=== PATIENT | female | born 1955 | race Caucasian/White ===

== ENCOUNTER 2018-08-09 17:31 | Inpatient (IN) | payer OTHER ==
[2018-08-09 18:28] LABS: #Eosinphils 0.1 thou/uL (0.0-0.7); #Lymphocytes 2.4 thou/uL (1.20-3.40); #Monocytes 0.4 thou/uL (0.11-0.59); %Basophils 0.8 % (0.0-1.0); %Eosinophils 2.9 % (0.0-10.0); %Lymphocytes 48.4 % (21.0-51.0); %Monocytes 8.5 % (0.0-10.0); %Neutrophils 39.4 % (42.0-75.0); Mean Corpuscular HGB CONC 33.1 g/dL (32.0-36.0); Mean Corpuscular Hemoglobin 29.9 pg (27.0-31.0); Mean Corpuscular Volume 90.2 fL (78.0-98.0); Platelet Count 208 thou/uL (130-400); RBC Distribution Width 12.1 % (11.5-14.5); Red Blood Cell (RBC) Count 4.68 mill/uL (4.20-5.40)
[2018-08-09 18:43] LABS: ALT (SGPT) 17 U/L (8-55); AST (SGOT) 16 U/L (5-34); Albumin 3.9 g/dL (3.4-4.8); Alkaline Phosphatase 29 U/L (40-150); Anion Gap 12 mmol/L (10-20); BUN (Urea Nitrogen) 10 mg/dL (9.8-20.1); Bilirubin, Total 0.8 mg/dL (0.2-1.2); Calc. Creatinine Clearance 0 mL/min (70-130); Calcium 9.2 mg/dL (7.8-10.44); Carbon Dioxide 27 mmol/L (23-31); Chloride 105 mmol/L (98-107); Estimated GFR-MDRD 74; Globulin 3.4 g/dL (2.4-3.5); Glucose 103 mg/dL (80-115); Potassium 3.8 mmol/L (3.5-5.1); Protein, Total 7.3 g/dL (6.0-8.3); Sodium 140 mmol/L (136-145)
--- NOTE | 2018-08-09 19:50 | ULT ---
SOFT TISSUE ULTRASOUND: Technique: Directed soft tissue ultrasound medial right thigh region performed. Indication: Palpable area of tenderness. FINDINGS: In the subcutaneous tissues there is a hypoechoic area measuring approximately 2.3 x 1.5 cm. This cou ld represent a small fluid or abscess collection. The tissues anterior to this collection are very ec hogenic suggesting inflammation and induration. IMPRESSION: Ill-defined hypoechoic area which may represent fluid or abscess collection measuring approximately 1 .5 x 2.5 cm. POS: [facility]
[2018-08-09] MEDS ORDERED: Lidocaine 1% PF 5 ML VIAL ONE (21:20)
[2018-08-09] MEDS ORDERED: CEFAZOLIN 1 GM VIAL ONE ×2 (22:25→22:35)
[2018-08-09] MEDS ORDERED: Sodium Chloride 0.9% 1,000 ML IV SCH (23:08)
[2018-08-09] MEDS ORDERED: Ondansetron ODT 4 MG TAB SL PRN (23:08)
[2018-08-09] MEDS ORDERED: Acetaminophen 325 MG TAB PO PRN (23:08)
[2018-08-09] MEDS ORDERED: Ondansetron PF 4 MG/2 ML Vial IVP PRN (23:08)
--- NOTE | 2018-08-10 00:33 | PDOC.FPRHP ---
- History of Present Illness Chief Complaint: right leg mass History of Present Illness: This is a 63yo F who presented to [facility] earlier today for right leg mass and was sent to the ED for cellulitis with possible I&D of abscess and IV abx. The patient first noticed pain followed by redness and swelling in her right inner thigh about 2-2.5 weeks prior. The patient states she felt a lump about 1.5 weeks ago. Denies injury or insect bite to the area. Patient denies fever, chills, NVD, or decreased PO intake. Patient states the redness and swelling has gotten progressively worse today. In the ED, unsuccessful attempt to drain abscess. Minimal pus expressed and culture sent. ED Course: ancef 2gm - Allergies/Adverse Reactions Allergies Allergy/AdvReac Type Severity Reaction Status Date / Time morphine AdvReac Mild BRADYCARDIA Verified 08/10/18 00:37 - Home Medications Medication Instructions Recorded Confirmed Type Aspirin [Children's Aspirin] 81 mg PO HS 08/10/18 08/10/18 History Citalopram [CeleXA] 1 tab PO DAILY 08/10/18 08/10/18 History Metoprolol Tartrate 1 tab PO DAILY 08/10/18 08/10/18 History Naproxen [Naprosyn] 1 tab PO PRN PRN 08/10/18 08/10/18 History - History PMHx: previous cellulitis of RLE, HTN, borderline DM, anxiety PSHx: appendectomy, hysterectomy, oophorectomy, tubal ligation FHx: non contributory Social: denies alcohol drug or tobacco use - Review of Systems General: denies: fever/chills, weight/appetite/sleep changes, night sweats, fatigue Eyes: denies: vision changes ENT: denies: nasal congestion Respiratory: denies: cough, congestion, shortness of breath Cardiovascular: denies: chest pain, palpitation, edema Gastrointestinal: denies: nausea, vomiting, diarrhea, constipation, abdominal pain Skin: reports: lesions Musculoskeletal: denies: pain, tenderness, stiffness, swelling Neurological: denies: numbness, weakness - Vital signs BP: 146/77 HR: 71 RR: 16 Tmax: 98.9F Pox: 99% on RA Wt: 116.89kg - Physical Exam Constitutional: NAD, awake, alert and oriented, well developed HEENT: normocephalic and atraumatic, PERRLA, EOMI, grossly normal vision, grossly normal hearing, MMM Neck: supple, FROM, trachea midline Chest: no-tender to palpation, no lesions Heart: RRR, normal S1/S2, no murmurs/rubs/gallops, pulses present Lungs: CTAB, no respiratory distress, no wheezing Abdomen: soft, non-tender, bowel sounds present Musculoskeletal: normal structure, normal tone Neurological: no focal deficit Skin: no rash/lesions ([id number] area of induration, erythema surrounding the area and spreading towards lower leg; warmth to the area), capillary refill <2 seconds Heme/Lymphatic: no unusual bruising or bleeding, no petechia Psychiatric: normal mood and affect, good judgment and insight, intact recent and remote memory FMR H&P: Results - Labs Result Diagrams: 08/10/18 02:10 08/10/18 02:10 Lab results: WBC 5.0 thou/uL (4.8-10.8) 08/09/18 18:10 Hgb 14.0 g/dL (12.0-16.0) 08/09/18 18:10 Hct 42.2 % (36.0-47.0) 08/09/18 18:10 MCV 90.2 fL (78.0-98.0) 08/09/18 18:10 Plt Count 208 thou/uL (130-400) 08/09/18 18:10 Neutrophils % 39.4 % (42.0-75.0) L 08/09/18 18:10 Sodium 140 mmol/L (136-145) 08/09/18 18:10 Potassium 3.8 mmol/L (3.5-5.1) 08/09/18 18:10 Chloride 105 mmol/L (98-107) 08/09/18 18:10 Carbon Dioxide 27 mmol/L (23-31) 08/09/18 18:10 BUN 10 mg/dL (9.8-20.1) 08/09/18 18:10 Creatinine 0.78 mg/dL (0.6-1.1) 08/09/18 18:10 Glucose 103 mg/dL (80-115) 08/09/18 18:10 Lactic Acid 1.9 mmol/L (0.5-2.2) 08/09/18 18:06 Calcium 9.2 mg/dL (7.8-10.44) 08/09/18 18:10 Total Bilirubin 0.8 mg/dL (0.2-1.2) 08/09/18 18:10 AST 16 U/L (5-34) 08/09/18 18:10 ALT 17 U/L (8-55) 08/09/18 18:10 Alkaline Phosphatase 29 U/L (40-150) L 08/09/18 18:10 Serum Total Protein 7.3 g/dL (6.0-8.3) 08/09/18 18:10 Albumin 3.9 g/dL (3.4-4.8) 08/09/18 18:10 - Radiology Interpretation Other Status: report reviewed by me (US: hypoechoic area which may represent fluid or abscess collection measuring 1.5X2.5cm) FMR H&P: A/P - Problem List (1) Abscess Current Visit: Yes Status: Acute Code(s): L02.91 - CUTANEOUS ABSCESS, UNSPECIFIED (2) Hypertension Current Visit: Yes Status: Acute Code(s): I10 - ESSENTIAL (PRIMARY) HYPERTENSION (3) Anxiety Current Visit: Yes Status: Acute Code(s): F41.9 - ANXIETY DISORDER, UNSPECIFIED (4) Pre-diabetes Current Visit: Yes Status: Acute Code(s): R73.03 - PREDIABETES - Plan Right Extremity Cellulitis w/ abscess - Will admit to medical - Will consult general surgery for drainage of abscess in AM - Cx pending - pro nitin ordered - Will continue abx therapy with vanc for MRSA coverage - AM CBC, BMP Anxiety - aware, restart home meds HTN - aware, restart home meds - monitor VS Pre-diabetes - controlled with diet/exercise - Will monitor sugars - will obtain HbA1C DISPO: admit to medical CODE: FULL VTE: SCDs, home asa GI: protonix FMR H&P: Upper Level - Pertinent history Taty Toscano is a 63 year old female who presents to the ED due to increased redness with an indurated mass on her right lower extremity. She was seen in clinic earlier today and was directed to the ED for further evaluation. She has been treated for cellulitis in the past. - Pertinent findings General: alert and oriented, in no apparent distress. Extremities: right lower extremity with approximately 25 cm in length with approximately 2x5 cm area of induration in the center. - Plan Date/Time: 08/10/18 0029 I, Alexandrea Dotson, have evaluated this patient and agree with findings/plan as outlined by recruiting intern resident. Pertinent changes/additions are listed here. Right lower extremity cellulitis with abcess - Will admit patient to medical floor. - I&D attempted in ED, but was not completed due to depth of abscess. Consider surgical consult in AM. - will begin Vancomycin. Diabetes Mellitus - diet controlled per patient. Not on medications. - will add on A1C. Hypertension - resume home medications. Anxiety - resume home medications. Attending Addendum - Attending Addendum Date/Time: 08/10/18 1038 I personally evaluated the patient and discussed the management with Dr. Parker/ Mauri. I agree with the History, Examination, Assessment and Plan documented above with any addition or exceptions noted below. Patient here with worsening palpable abcess and overlying cellulitis. Not amenable to drainage in the ER. Continue vancomycin and consult surgery for drainage/debridement.
[2018-08-10 00:59] VITALS: BMI 41.4
[2018-08-10] MEDS: Lactated Ringer's 1,000 ML IV SCH ×4 (01:23→21:17)
[2018-08-10] MEDS ORDERED: Naproxen 500 MG TAB PO PRN (02:00)
[2018-08-10 02:39] LABS: Band 3 % (5-11); Eosinophils 2 % (0-10); Hemoglobin 13.1 g/dL (12.0-16.0); Lymphocytes 50 % (21-51); MDiff Complete? YES; Mean Corpuscular HGB CONC 32.8 g/dL (32.0-36.0); Mean Corpuscular Hemoglobin 29.7 pg (27.0-31.0); Mean Corpuscular Volume 90.6 fL (78.0-98.0); Mean Platelet Volume 7.1 fL (7.4-10.4); Monocytes 9 % (0-10); Neutrophil 32 % (42-75); PLT Morphology Comment Appears Adequate; Platelet Count 179 thou/uL (130-400); Reactive Lymphocytes 4 % (0-10); White Blood Cell (WBC) Count 4.7 thou/uL (4.8-10.8)
[2018-08-10 02:45] LABS: Anion Gap 11 mmol/L (10-20); BUN (Urea Nitrogen) 11 mg/dL (9.8-20.1); Calc. Creatinine Clearance 128 mL/min (70-130); Calcium 9.3 mg/dL (7.8-10.44); Carbon Dioxide 28 mmol/L (23-31); Chloride 107 mmol/L (98-107); Estimated GFR-MDRD 70; Glucose 101 mg/dL (80-115); Potassium 3.8 mmol/L (3.5-5.1); Sodium 142 mmol/L (136-145)
[2018-08-10 06:52] LABS: Hemoglobin A1c 5.5 % (4.0-6.0)
[2018-08-10] MEDS: Citalopram 20 MG TAB PO SCH (09:16)
--- NOTE | 2018-08-10 13:05 | CON ---
DATE OF CONSULTATION: 08/10/2018 HISTORY OF PRESENT ILLNESS: Ms. Toscano is a 63-year-old morbidly obese woman. The patient was compl aining of a right thigh redness and pain. There is a raised palpable nodular mass associated with th is pain. This has been present over the last 2-1/2 weeks. The patient does not recall being bitten by any insect. She denies any fevers or chills. She was ad mitted yesterday with IV antibiotics. The redness has markedly improved since. There was an attempt to aspirate fluid from this mass yesterday without success. A soft tissue ultra sound was obtained which revealed a 1.5 x 2.5 density suggestive of a fluid collection. I was asked to evaluate the patient for possible surgical drainage. At the time of my evaluation, the patient reports no significant pain. PAST MEDICAL HISTORY: Significant for essential hypertension, type 2 diabetes mellitus, chronic anxi ety disorder. PAST SURGICAL HISTORY: Pertinent for a hysterectomy and salpingo-oophorectomy, appendectomy, bilater al tubal ligation. SOCIAL HISTORY: The patient denies any cigarette smoking, ethanol or illicit drug abuse. PREHOSPITAL MEDICATIONS: Includes metoprolol 50 mg p.o. daily, aspirin 81 mg p.o. at bedtime, citalo pram 20 mg p.o. daily, and naproxen 500 mg p.o. p.r.n. pain. ALLERGIES: MORPHINE. REVIEW OF SYSTEMS: A 10-point review of systems essentially unremarkable except for as stated in pas t medical history and chief complaint. PHYSICAL EXAMINATION: GENERAL: This reveals a 63-year-old normally developed woman who is otherwise coherent and interacti ve and appears stated age. The patient is alert and oriented x3, appears to be in no acute distress at the time of my evaluation. VITAL SIGNS: Includes blood pressure 124/66, pulse is 70, respiratory rate is 18, temperature 98.2 d egrees Fahrenheit. Oxygen saturation is 94% on room air. CARDIOVASCULAR: Heart reveals regular rate and rhythm, no murmurs or gallops auscultated. LUNGS: Clear to auscultation bilaterally. Her breathing is regular and unlabored. ABDOMEN: Soft and obese with no tenderness to palpation. Liver and spleen nonpalpable below costal margin. EXTREMITIES: Reveals 2+ radial and pedal pulses bilaterally. Right thigh is examined. There is a l arge area of previous redness, which has since resolved as shown by the skin marking surrounding the borders. There is a raised nodular region in the central portion of the previous area of redness. T his now measures about 3 x 5 x 2 cm. This at the skin overlying this is blanches. There is no palpa ble fluctuance. This is slightly tender to palpation, although the patient reports marked decreasing tenderness. PERTINENT LABORATORY DATA: Today includes a CBC with 4700 white blood cells, hemoglobin and hematocr it 13.1 and 29.9 respectively. Platelet count is 179,000. Metabolic profile: Sodium 142, potassium 3.8, chloride is 107, bicarbonate is 28, BUN 11, creatinine 0.82, glucose 101. IMPRESSION: 1. Right thigh cellulitis. There is no clinical evidence of abscess on my examination. 2. Type 2 diabetes mellitus. RECOMMENDATIONS: I agree with choice of antibiotic therapy; however, I would recommend that we inclu de coverage of anaerobes to that and I think that metronidazole should be added. I would also recomm end warm compresses 3 times daily. There is no acute surgical indication for this patient at this ti me. I will; however, continue to follow along with you with serial examination and consider surgical intervention if any fluctuance to suggest a drainable fluid collection. The above findings and plan discussed with the patient who indicates understanding of information giv en. I answered her questions.
[2018-08-10] MEDS: metroNIDAZOLE 500 MG TAB PO SCH ×2 (14:14→21:16)
[2018-08-10] MEDS: Sulfameth/Trimethoprim DS 800-160mg TAB PO SCH (21:17)
[2018-08-11] MEDS: Lactated Ringer's 1,000 ML IV SCH (02:53)
--- NOTE | 2018-08-11 05:44 | PDOC.FM ---
- Subjective Subjective: Ms. Toscano has no complaints this morning other than having to urinate frequently d/t IVF received. Denies R leg pain and reports improved redness. Tolerating PO intake well. Wishes to go home. Has been getting warm compresses q6h. - Objective MAR Reviewed: Yes Vital Signs & Weight: Vital Signs (12 hours) Temp Pulse Resp BP Pulse Ox 08/10/18 19:37 99.0 F 72 18 134/82 95 Weight Weight 116.573 kg I&O: 08/09/18 08/10/18 08/11/18 06:59 06:59 06:59 Intake Total 1020 480 Balance 1020 480 Result Diagrams: 08/10/18 02:10 08/10/18 02:10 <Mary Jane Yu - Last Filed: 08/11/18 08:44> - Objective Vital Signs & Weight: Vital Signs (12 hours) Temp Pulse Resp BP Pulse Ox 08/11/18 08:00 93 L 08/11/18 07:42 99.5 F 77 18 139/84 93 L Weight Weight 116.573 kg I&O: 08/10/18 08/11/18 08/12/18 06:59 06:59 06:59 Intake Total 1020 480 Balance 1020 480 Result Diagrams: 08/10/18 02:10 08/10/18 02:10 <Bob Hopkins - Last Filed: 08/11/18 11:50> Phys Exam - Physical Examination Constitutional: NAD HEENT: moist MMs poor dentition Respiratory: no wheezing, no rhonchi, clear to auscultation bilateral Cardiovascular: RRR, no significant murmur Gastrointestinal: soft, non-tender, no distention, positive bowel sounds Musculoskeletal: no edema Neurological: moves all 4 limbs Psychiatric: normal affect Skin: cap refill <2 seconds Deviation from normal: RLL "chronic" erythema present. R thigh erythema improving. 8x6cm firm mass <Mary Jane Yu - Last Filed: 08/11/18 08:44> Dx/Plan (1) Cellulitis and abscess of right leg Code(s): L03.115 - CELLULITIS OF RIGHT LOWER LIMB; L02.415 - CUTANEOUS ABSCESS OF RIGHT LOWER LIMB Status: Acute (2) Anxiety Code(s): F41.9 - ANXIETY DISORDER, UNSPECIFIED Status: Chronic (3) Hypertension Code(s): I10 - ESSENTIAL (PRIMARY) HYPERTENSION Status: Chronic (4) Pre-diabetes Code(s): R73.03 - PREDIABETES Status: Chronic - Plan Plan: 63 yo F presents with 2 week history of R thigh cellulitis with concern for abscess. Right Extremity Cellulitis w/ abscess - US showed 1.5x2.5 cm collection. Unable to be aspirated in ED - Appreciate recommendations from Dr. Dotson - Wound Cx pending. Gram stam no organisms, no growth at 12 hrs. - Procalcitonin negative - Will continue abx therapy of flagyll and bactrim per surg recs - discontinue vanc Anxiety - continue home celexa HTN - patient reported use of metoprolol but pharmacy unable to confirm filling of any medications. BP have been at goal. Will hold metoprolol for now. - monitor VS Pre-diabetes - controlled with diet/exercise - Will monitor sugars - HbA1C 5.5 CODE: FULL VTE: SCDs GI: protonix Dispo: pending surgery recs, possible discharge home <Mary Jane Yu - Last Filed: 08/11/18 08:44> (1) Abscess Code(s): L02.91 - CUTANEOUS ABSCESS, UNSPECIFIED Status: Acute (2) Hypertension Code(s): I10 - ESSENTIAL (PRIMARY) HYPERTENSION Status: Chronic (3) Anxiety Code(s): F41.9 - ANXIETY DISORDER, UNSPECIFIED Status: Chronic (4) Pre-diabetes Code(s): R73.03 - PREDIABETES Status: Chronic <Bob Hopkins R - Last Filed: 08/11/18 11:50> Attending Addendum - Attending Addendum Date/Time: 08/11/18 7302 I personally evaluated the patient and discussed the management with Dr. Yu. I agree with the History, Examination, Assessment and Plan documented above with any addition or exceptions noted below. Patient cellulitis improved on current therapy. No abscess needing drainage per GenSurg. Will d/c on PO antibiotics for outpatient follow up. Labs reassuring. <Bob Hopkins - Last Filed: 08/11/18 11:50>
[2018-08-11 07:45] VITALS: TEMP 99.5
[2018-08-11] MEDS: metroNIDAZOLE 500 MG TAB PO SCH (08:48)
[2018-08-11] MEDS: Citalopram 20 MG TAB PO SCH (08:48)
[2018-08-11] MEDS: Sulfameth/Trimethoprim DS 800-160mg TAB PO SCH (08:49)
--- NOTE | 2018-08-11 11:00 | PRG ---
DATE OF SERVICE: 08/11/2018 SUBJECTIVE: Ms. Toscano is a 63-year-old morbidly obese woman with history of type 2 diabetes mellitu s. The patient was seen by me in consultation for right thigh cellulitis. This morning she reports no pain. The right thigh cellulitis is improving. The redness is certainly resolving. The nodular central po rtion of the cellulitis remains firm, but freely mobile. There clearly is no fluctuance to suggest a drainable fluid collection. PHYSICAL EXAMINATION: VITAL SIGNS: Her vital signs have remained stable and the patient currently has a blood pressure 139 /84, pulse is 77, respiratory rate is 18, temperature 99.5 degrees Fahrenheit, oxygen saturation is 9 7% on room air. There is no acute surgical indication for this patient at this time. I recommend we continue with warm compresses and antibiotic therapy until there is any clinical evide nce of a drainable fluid collection which will require incision and drainage at that time.
[2018-08-11 12:27] VITALS: BP 148/88
== END 2018-08-11 13:40 | disposition home or self-care (01) | DRG 603 ==
LOC: ERS 17:31 → T4-A 22:55
PROVIDERS: ADMIT Family Medicine; ATTEND Family Medicine
PROC: 0J9L0ZX Drainage of Right Upper Leg Subcutaneous Tissue and Fascia, Open Approach, Diagnostic (ICD-10-PCS; principal; 2018-08-09)
DX: L03.115 Cellulitis of right lower limb (principal); Z68.41 Body mass index [BMI] 40.0-44.9, adult; L02.415 Cutaneous abscess of right lower limb; I10 Essential (primary) hypertension; R73.03 Prediabetes; F41.9 Anxiety disorder, unspecified; E66.01 Morbid (severe) obesity due to excess calories; Z79.82 Long term (current) use of aspirin; Z88.5 Allergy status to narcotic agent
CPT/HCPCS: 36415; 76999; 80048; 80053; 83036; 83605; 84145; 85025; 87040; 87070; 87205; J0690; J2001; J3370; J7050

== ENCOUNTER 2018-09-12 19:06 | Inpatient (IN) | payer OTHER ==
[2018-09-12 20:04] LABS: #Lymphocytes 1.8 thou/uL (1.20-3.40); #Monocytes 0.6 thou/uL (0.11-0.59); #Neutrophils 3.9 thou/uL (1.40-6.50); %Basophils 0.5 % (0.0-1.0); %Eosinophils 0.5 % (0.0-10.0); %Lymphocytes 28.2 % (21.0-51.0); %Monocytes 8.7 % (0.0-10.0); Mean Corpuscular HGB CONC 34.3 g/dL (32.0-36.0); Mean Corpuscular Hemoglobin 30.3 pg (27.0-31.0); Mean Corpuscular Volume 88.5 fL (78.0-98.0); Mean Platelet Volume 7.1 fL (7.4-10.4); Platelet Count 171 thou/uL (130-400); RBC Distribution Width 12.7 % (11.5-14.5); Red Blood Cell (RBC) Count 4.28 mill/uL (4.20-5.40); White Blood Cell (WBC) Count 6.3 thou/uL (4.8-10.8)
--- NOTE | 2018-09-12 20:10 | RAD ---
RIGHT TIBIA AND FIBULA TWO VIEWS: HISTORY: Lower leg pain, redness, and swelling. FINDINGS: There are no signs of fracture or other acute bony findings. I do not see any foreign bodies. Calca christen spurs are noted. IMPRESSION: No acute bony changes. POS: [facility]
--- NOTE | 2018-09-12 20:12 | RAD ---
PORTABLE CHEST: HISTORY: Cough and fever. FINDINGS: Heart size is borderline with atherosclerotic changes of the aorta. The lungs are clear of any infil trates. No signs of failure. IMPRESSION: Borderline to minimal cardiomegaly. POS: [facility]
[2018-09-12 20:23] LABS: ALT (SGPT) 15 U/L (8-55); AST (SGOT) 18 U/L (5-34); Albumin 3.7 g/dL (3.4-4.8); Alkaline Phosphatase 27 U/L (40-150); Anion Gap 14 mmol/L (10-20); BUN (Urea Nitrogen) 15 mg/dL (9.8-20.1); Bilirubin, Total 0.9 mg/dL (0.2-1.2); CK (CPK) 69 U/L (29-168); Calc. Creatinine Clearance 0 mL/min (70-130); Calcium 9.3 mg/dL (7.8-10.44); Carbon Dioxide 23 mmol/L (23-31); Chloride 106 mmol/L (98-107); Estimated GFR-MDRD 71; Globulin 3.6 g/dL (2.4-3.5); Glucose 145 mg/dL (80-115); Potassium 3.7 mmol/L (3.5-5.1); Protein, Total 7.3 g/dL (6.0-8.3); Sodium 139 mmol/L (136-145)
[2018-09-12] MEDS ORDERED: diphenhydrAMINE 50 MG/ML VIAL ONE (20:29)
[2018-09-12] MEDS ORDERED: Ampicillin/Sulbactam 3 GM in Sodium Chloride 0.9% 100 ML IVPB SCH (20:30)
[2018-09-12] MEDS ORDERED: Lorazepam 1 MG TAB ONE (20:40)
[2018-09-12] MEDS ORDERED: Acetaminophen 500 MG TAB ONE (20:42)
--- NOTE | 2018-09-12 21:50 | PDOC.FPRHP ---
- History of Present Illness Chief Complaint: Right lower extermity redness and swelling History of Present Illness: This is a 63 yo female with a pmh of HTN, arthritis, and anxiety who presents to the ED with a cc of worsening right lower extremity swelling and redness. She reports her swelling and redness initially started about a week ago. She reports some itching and minimal pain. She also reports subjective fever and chills. She states the pain is made worse with movement of her leg. ED Course: Vanc--> red man syndrome --> benadryl tylenol ativan unasyn - Allergies/Adverse Reactions Allergies Allergy/AdvReac Type Severity Reaction Status Date / Time morphine AdvReac Mild BRADYCARDIA Verified 08/10/18 00:37 - Home Medications Medication Instructions Recorded Confirmed Type Aspirin [Children's Aspirin] 81 mg PO HS 08/10/18 09/13/18 History Citalopram [CeleXA] 1 tab PO DAILY 08/10/18 09/13/18 History Metoprolol Tartrate 0.5 tab PO DAILY 08/10/18 09/13/18 History Naproxen [Naprosyn] 1 tab PO PRN PRN 08/10/18 09/13/18 History Sulfamethoxazole/Trimethoprim 1 tab PO BID 10 Days #20 tab 08/11/18 09/13/18 Rx [Bactrim DS] metroNIDAZOLE [Flagyl] 500 mg PO TID 10 Days #30 tab 08/11/18 09/13/18 Rx - History PMHx: HTN, arthritis, anxiety PSHx: Hysterectomy, appendectomy FHx: noncontributory Social: Denies KATHLEEN - Review of Systems General: reports: fever/chills. denies: weight/appetite/sleep changes, fatigue Eyes: denies: eye pain, vision changes ENT: reports: nasal congestion. denies: rhinorrhea Respiratory: reports: cough, congestion. denies: shortness of breath, exercise intolerance Cardiovascular: denies: chest pain, palpitation Gastrointestinal: denies: nausea, vomiting, diarrhea Genitourinary: denies: incontinence, dysuria Skin: reports: lesions (raised erythematous rash on right left leg) Musculoskeletal: reports: pain, tenderness Neurological: denies: numbness, syncope Psychological: denies: anxiety, depression - Vital signs BP: 154/59 HR: 87 RR: 28 Tmax: 100.8 Pox: 95% on 2l nc Wt: 115 kg - Physical Exam Constitutional: NAD, awake, alert and oriented HEENT: normocephalic and atraumatic, PERRLA, EOMI Neck: trachea midline, no JVD Chest: no-tender to palpation Heart: RRR, normal S1/S2, no murmurs/rubs/gallops Lungs: CTAB, no respiratory distress Abdomen: soft, non-tender, bowel sounds present Musculoskeletal: normal tone Neurological: CN II-XII intact Skin: other (Pt has rash on anterior lower leg. It currently takes up the entirety of the anterior portion of the leg, no fluctuance, and minimal pain to palpation) Heme/Lymphatic: no unusual bruising or bleeding Psychiatric: normal mood and affect, good judgment and insight FMR H&P: Results - Labs Result Diagrams: 09/13/18 05:52 09/13/18 05:52 Lab results: WBC 6.3 thou/uL (4.8-10.8) 09/12/18 19:53 Hgb 13.0 g/dL (12.0-16.0) 09/12/18 19:53 Hct 37.9 % (36.0-47.0) 09/12/18 19:53 MCV 88.5 fL (78.0-98.0) 09/12/18 19:53 Plt Count 171 thou/uL (130-400) 09/12/18 19:53 Neutrophils % 62.0 % (42.0-75.0) 09/12/18 19:53 Sodium 139 mmol/L (136-145) 09/12/18 19:53 Potassium 3.7 mmol/L (3.5-5.1) 09/12/18 19:53 Chloride 106 mmol/L (98-107) 09/12/18 19:53 Carbon Dioxide 23 mmol/L (23-31) 09/12/18 19:53 BUN 15 mg/dL (9.8-20.1) 09/12/18 19:53 Creatinine 0.81 mg/dL (0.6-1.1) 09/12/18 19:53 Glucose 145 mg/dL (80-115) H 09/12/18 19:53 Calcium 9.3 mg/dL (7.8-10.44) 09/12/18 19:53 Total Bilirubin 0.9 mg/dL (0.2-1.2) 09/12/18 19:53 AST 18 U/L (5-34) 09/12/18 19:53 ALT 15 U/L (8-55) 09/12/18 19:53 Alkaline Phosphatase 27 U/L (40-150) L 09/12/18 19:53 Creatine Kinase 69 U/L (29-168) 09/12/18 19:53 Serum Total Protein 7.3 g/dL (6.0-8.3) 09/12/18 19:53 Albumin 3.7 g/dL (3.4-4.8) 09/12/18 19:53 - Radiology Interpretation Chest x-ray Status: report reviewed by me (no acute cardiovascular disease) Other Status: report reviewed by me (xray of rt tib/fib no signs of osteomyelitis) FMR H&P: A/P - Problem List (1) Cellulitis of right anterior lower leg Current Visit: Yes Status: Acute Code(s): L03.115 - CELLULITIS OF RIGHT LOWER LIMB (2) Arthritis Current Visit: Yes Status: Acute Code(s): M19.90 - UNSPECIFIED OSTEOARTHRITIS, UNSPECIFIED SITE (3) Anxiety Current Visit: No Status: Chronic Code(s): F41.9 - ANXIETY DISORDER, UNSPECIFIED (4) Hypertension Current Visit: No Status: Chronic Code(s): I10 - ESSENTIAL (PRIMARY) HYPERTENSION - Plan This is a 63 yo female with a pmh of HTN, anxiety, arthritis, and recent failed outpt tx of cellulitis Cellulitis -Admit to medical -WBC 6.3, temperature as high as 100.9 here -Vanc and unasyn, convert to oral antibiotics once clinically improving. Pt failed treatment on bactrim before -DVT US on the right -US over cellulitis site. Arthritis -continue home naproxen Anxiety -Continue home citalopram HTN -Continue home meds Code: full Prophylaxis: protonix Family: none at bedside Disposition: DC in 2-3 days FMR H&P: Upper Level - Pertinent history 63F seen today for right hancock redness. She was seen on 08/09/18 for same. In ER at that time, an unsuccessful I&D was attempted and culture sent. At that time, soft tissue US shows an ill definited pocket that may represent an abscess. This was decided to be unlikely based on gen surg rec. She was then discharged on both bactrim and metronidazole. Culture only found mixed skin yaneth. Patient endorse that her symptom improved with abx, however, did not fully resolve. About 1.5 week ago, the redness returned with marked worsening 2 days ago. In ER, she has received unasyn and vanc. Apparently had a Wally reaction to vanc. The vanc was slowed and she was given benedryl and ativan. At time of interview, patient was sleepy and history is not fully reliable. - Pertinent findings Gen: Somnolent, but answers question mostly appropriately. Well developed, appear stated age HEENT: Normocephalic, white slcera, moist mucosal membrane, midline trachea CV: RRR with no apparent m/g/r Resp: Difficult auscultation but there is air movement through out and unlabored breathing GI: Soft, normoactive, no masses palpated Derm: Right hancock, area of erythema from midfoot to 2-3 inches below knee. The eyrthema is circumfrential, with poorly delineated margins. There is induration. No obvious skin break or lesion. Warm to touch. Face has unusual rash that is malar like in appearance. Neruo: Somnolent but GCS 15. - Plan Date/Time: 09/12/182147 I, [Jadon Ly], have evaluated this patient and agree with findings/plan as outlined by summer internship resident. Pertinent changes/additions are listed here. 1. Cellulitis failed outpatient treatment - Possible resistant organism to both bactrim and metronidazole. Consider that there may be an abscess from previous infection that started this second one. - Will treat broadly with vanc and unasyn. Obtain US of soft tissue to evaluate for abscess - Also consider that this may be an unusual venous insufficency. Consider US to evaluate for that. May also benefit from outpatient biopsy as patient has history of recurrent cellulitis that do not fully resolve 2. HTN - Chronic issue. Continue home metoprolol 3. Anxiety - Chronic issue. 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 - Patient with rash on face that may be wally, consider other causes such as lupus. Will reeevaluate rash during hospital stay. t
[2018-09-12] MEDS ORDERED: Ondansetron PF 4 MG/2 ML Vial IVP PRN (23:17)
[2018-09-12] MEDS ORDERED: Ondansetron ODT 4 MG TAB SL PRN (23:17)
[2018-09-12] MEDS ORDERED: Acetaminophen 325 MG TAB PO PRN (23:17)
[2018-09-12] MEDS ORDERED: Ondansetron ODT 4 MG TAB PO PRN (23:39)
[2018-09-13 01:29] VITALS: BMI 42.2
[2018-09-13] MEDS: Acetaminophen 325 MG TAB PO PRN ×3 (05:15→18:25)
[2018-09-13] MEDS ORDERED: Ampicillin/Sulbactam 3 GM in Sodium Chloride 0.9% 100 ML IVPB SCH (05:30)
[2018-09-13 06:27] LABS: #Monocytes 0.6 thou/uL (0.11-0.59); #Neutrophils 4.8 thou/uL (1.40-6.50); %Basophils 0.3 % (0.0-1.0); %Eosinophils 0.2 % (0.0-10.0); %Lymphocytes 14.9 % (21.0-51.0); %Monocytes 9.3 % (0.0-10.0); %Neutrophils 75.2 % (42.0-75.0); Hemoglobin 12.6 g/dL (12.0-16.0); Mean Corpuscular HGB CONC 34.4 g/dL (32.0-36.0); Mean Corpuscular Hemoglobin 30.6 pg (27.0-31.0); Mean Corpuscular Volume 88.9 fL (78.0-98.0); Mean Platelet Volume 7.3 fL (7.4-10.4); Platelet Count 159 thou/uL (130-400); RBC Distribution Width 12.8 % (11.5-14.5); Red Blood Cell (RBC) Count 4.12 mill/uL (4.20-5.40); White Blood Cell (WBC) Count 6.4 thou/uL (4.8-10.8)
[2018-09-13 06:47] LABS: Anion Gap 13 mmol/L (10-20); BUN (Urea Nitrogen) 13 mg/dL (9.8-20.1); Calc. Creatinine Clearance 124 mL/min (70-130); Carbon Dioxide 23 mmol/L (23-31); Chloride 107 mmol/L (98-107); Estimated GFR-MDRD 69; Glucose 148 mg/dL (80-115); Potassium 3.8 mmol/L (3.5-5.1); Sodium 139 mmol/L (136-145)
--- NOTE | 2018-09-13 08:19 | ULT ---
VENOUS DOPPLER ULTRASOUND OF THE RIGHT LOWER EXTREMITY: Date: 09/13/18 HISTORY: Right lower extremity cellulitis, redness, edema. TECHNIQUE: Rose scale ultrasound with color flow and spectral Doppler imaging of the deep venous system of the r ight lower extremity was performed. FINDINGS: There is good flow, compression, and augmentation noted in the right common femoral, femoral, deep fe moral, popliteal, posterior tibial, and greater saphenous veins. There is edema and thickening of the skin. IMPRESSION: No evidence of deep venous thrombosis in the right lower extremity. POS: [facility]
--- NOTE | 2018-09-13 08:30 | PDOC.FM ---
- Subjective Subjective: 63 yo female seen at bedside this AM. Patient is requesting a menu to order food. Patient states that her RLE is not painful as long as it is not touched. Patient states that she has not had any other pains or rashes. She does complain of fevers. She states that she has not had n/v/d, cough, or recent illness. Patient states that she made all follow up appointments for her outpatient management of her cellulitis. No other complaints today. - Objective Vital Signs & Weight: Vital Signs (12 hours) Temp Pulse Resp BP BP Pulse Ox 09/13/18 07:31 99.3 F 83 20 109/61 94 L 09/13/18 04:00 103.1 F H 99 22 H 133/77 94 L 09/12/18 23:43 97 09/12/18 23:38 99.3 F 80 16 134/74 100 Weight Weight 115 kg Result Diagrams: 09/13/18 05:52 09/13/18 05:52 Phys Exam - Physical Examination Constitutional: NAD HEENT: moist MMs Respiratory: no wheezing, clear to auscultation bilateral Cardiovascular: RRR, no significant murmur Gastrointestinal: soft, non-tender, no distention, positive bowel sounds Musculoskeletal: no edema, pulses present Neurological: non-focal, moves all 4 limbs Psychiatric: A&O x 3 Skin: cap refill <2 seconds Deviation from normal: Large area of erythema to RLE. Worse than previous hospitalization Dx/Plan (1) Cellulitis of right anterior lower leg Code(s): L03.115 - CELLULITIS OF RIGHT LOWER LIMB Status: Acute (2) Arthritis Code(s): M19.90 - UNSPECIFIED OSTEOARTHRITIS, UNSPECIFIED SITE Status: Acute (3) Anxiety Code(s): F41.9 - ANXIETY DISORDER, UNSPECIFIED Status: Chronic (4) Hypertension Code(s): I10 - ESSENTIAL (PRIMARY) HYPERTENSION Status: Chronic (5) Pre-diabetes Code(s): R73.03 - PREDIABETES Status: Chronic - Plan Plan: Cellulitis - Tmax overnight 103.7 - Vanc and unasyn, convert to oral antibiotics once clinically improving. Pt failed treatment on bactrim before - DVT US on the right negative for DVT - US over cellulitis site negative for fluid collection - Blood cultures pending Arthritis - continue home naproxen Anxiety - Continue home citalopram HTN - Continue Metoprolol - Well controlled Disposition: Stable, will continue current plan of care.
[2018-09-13] MEDS ORDERED: Vancomycin HCl 1.75 GM in Sodium Chloride 0.9% 500 ML IVPB SCH (09:00)
[2018-09-13] MEDS: Citalopram 20 MG TAB PO SCH (09:24)
[2018-09-13] MEDS: Metoprolol Tartrate 50 MG TAB PO SCH (09:24)
[2018-09-13] MEDS: Enoxaparin Sodium 40 MG/0.4 ML SYRINGE SC SCH (09:24)
--- NOTE | 2018-09-13 11:15 | PRG ---
DATE OF SERVICE: 09/13/2018 SUBJECTIVE: Ms. Toscano is a 63-year-old white female, prediabetic patient, who was admitted with acute cellulitis of her right lower extremity. She was given some intravenous vancomycin in the ER developed red man syndrome. We will therefore reduce her dose and rate of administration. She is also on Unasyn and we will continue this medication as well. Prior to this morning, she developed a fever to 103.1, but she has only been on antibiotics for less than 24 hours. Her white count is normal. LABORATORY DATA: Her chemistry did show a glucose of 145. Electrolytes were normal. BUN 15 and creatinine 0.81. Job ID: [id number]
[2018-09-13] MEDS: Vancomycin HCl 1.75 GM in Sodium Chloride 0.9% 500 ML IVPB SCH (13:21)
[2018-09-14] MEDS: Vancomycin HCl 1.75 GM in Sodium Chloride 0.9% 500 ML IVPB SCH ×3 (01:00→23:54)
[2018-09-14] MEDS: Acetaminophen 325 MG TAB PO PRN ×3 (01:02→17:48)
--- NOTE | 2018-09-14 06:25 | PDOC.FM ---
- Subjective Subjective: Patient states she had a much better night. She states that she did not feel like she had any fevers. She states that the pain and heat from her leg wound is much improved as well. She denied n/v/d, cough, abdominal pain, chest pain, or sob. She states that she had a very similar episode to this cellulitis in the past where she needed to have IV antibiotics fpc through a PICC line. Patient states that she is ready to get up and moving more today. No other complaints. - Objective MAR Reviewed: Yes Vital Signs & Weight: Vital Signs (12 hours) Temp Pulse Resp BP BP Pulse Ox 09/14/18 04:15 99.0 F 80 16 103/61 95 09/14/18 01:03 100.3 F H 09/14/18 00:00 99.3 F 83 16 107/51 L 94 L 09/13/18 20:00 93 L 09/13/18 19:48 98.8 F 80 16 144/72 H 93 L Weight Weight 115 kg I&O: 09/12/18 09/13/18 09/14/18 06:59 06:59 06:59 Intake Total 980 Balance 980 Result Diagrams: 09/13/18 05:52 09/13/18 05:52 Phys Exam - Physical Examination Constitutional: NAD HEENT: moist MMs Neck: no JVD, supple Respiratory: no wheezing, clear to auscultation bilateral Cardiovascular: RRR, no significant murmur Gastrointestinal: soft, non-tender, no distention, positive bowel sounds Musculoskeletal: no edema, pulses present Area of cellulitis remarked. Improved from yesterday. Neurological: non-focal, normal sensation, moves all 4 limbs Psychiatric: normal affect, A&O x 3 Deviation from normal: cellulitis present to RLE Dx/Plan (1) Cellulitis of right anterior lower leg Code(s): L03.115 - CELLULITIS OF RIGHT LOWER LIMB Status: Acute (2) Arthritis Code(s): M19.90 - UNSPECIFIED OSTEOARTHRITIS, UNSPECIFIED SITE Status: Acute (3) Anxiety Code(s): F41.9 - ANXIETY DISORDER, UNSPECIFIED Status: Chronic (4) Hypertension Code(s): I10 - ESSENTIAL (PRIMARY) HYPERTENSION Status: Chronic (5) Pre-diabetes Code(s): R73.03 - PREDIABETES Status: Chronic - Plan Plan: Cellulitis - Tmax overnight 102.1 - Vanc and unasyn, convert to oral antibiotics once clinically improving. Pt failed treatment on bactrim before - DVT US on the right negative for DVT - US over cellulitis site negative for fluid collection - Blood cultures pending - Remarked with skin marker - May consider ID consultation if no improvement. Arthritis - continue home naproxen Anxiety - Continue home citalopram HTN - Continue Metoprolol - Well controlled Disposition: Stable, will continue current plan of care.
[2018-09-14] MEDS: Citalopram 20 MG TAB PO SCH (09:28)
[2018-09-14] MEDS: Metoprolol Tartrate 50 MG TAB PO SCH (09:28)
[2018-09-14] MEDS: Enoxaparin Sodium 40 MG/0.4 ML SYRINGE SC SCH (09:28)
[2018-09-14] MEDS ORDERED: Ampicillin/Sulbactam 1.5 GM in Sodium Chloride 0.9% 100 ML IVPB SCH (10:30)
[2018-09-14 11:23] LABS: Vancomycin, Trough 13.9 ug/mL
--- NOTE | 2018-09-14 11:46 | PRG ---
DATE OF SERVICE: SUBJECTIVE: Ms. Toscano states she feels better. She is still running a fever last night, but overall the trend is downward. Her white count remains normal. She did tolerate a repeat dose of vancomycin that was given at a slower rate. We are also continuing the IV Unasyn. Job ID: [id number]
[2018-09-14] MEDS ORDERED: Piperacillin/Tazobactam 3.375 GM in Sodium Chloride 0.9% 100 ML IVPB SCH (12:15)
[2018-09-14] MEDS: Piperacillin/Tazobactam 3.375 GM in Sodium Chloride 0.9% 100 ML IVPB SCH ×2 (17:47→23:54)
[2018-09-14] MEDS: Naproxen 500 MG TAB PO PRN (19:37)
[2018-09-15] MEDS: Piperacillin/Tazobactam 3.375 GM in Sodium Chloride 0.9% 100 ML IVPB SCH ×3 (04:53→17:33)
--- NOTE | 2018-09-15 06:29 | PDOC.FM ---
- Subjective Subjective: 63 yo female seen at bedside this AM. Patient states that she did not have a fever and had no body aches overnight. She states that she has not had any n/v/d , or cough. No other complaints this AM. - Objective Vital Signs & Weight: Vital Signs (12 hours) Temp Pulse Resp BP Pulse Ox 09/15/18 03:00 97.7 F 09/14/18 23:49 98.6 F 09/14/18 19:49 98.6 F 72 16 114/76 95 09/14/18 19:38 95 Weight Weight 115 kg I&O: 09/13/18 09/14/18 09/15/18 06:59 06:59 06:59 Intake Total 980 1420 Balance 980 1420 Result Diagrams: 09/13/18 05:52 09/13/18 05:52 Phys Exam - Physical Examination Constitutional: NAD HEENT: moist MMs Neck: no nodes, supple Respiratory: no wheezing, clear to auscultation bilateral Cardiovascular: RRR, no significant murmur Gastrointestinal: soft, non-tender, no distention, positive bowel sounds Musculoskeletal: no edema, pulses present Neurological: non-focal, normal sensation, moves all 4 limbs Lymphatic: no nodes Psychiatric: normal affect, A&O x 3 Skin: cap refill <2 seconds Deviation from normal: Cellulitis area of redness outside of marked area. Dx/Plan (1) Cellulitis of right anterior lower leg Code(s): L03.115 - CELLULITIS OF RIGHT LOWER LIMB Status: Acute (2) Arthritis Code(s): M19.90 - UNSPECIFIED OSTEOARTHRITIS, UNSPECIFIED SITE Status: Acute (3) Anxiety Code(s): F41.9 - ANXIETY DISORDER, UNSPECIFIED Status: Chronic (4) Hypertension Code(s): I10 - ESSENTIAL (PRIMARY) HYPERTENSION Status: Chronic (5) Pre-diabetes Code(s): R73.03 - PREDIABETES Status: Chronic - Plan Plan: Cellulitis - Afebrile last 24 hours - Vanc and Zosyn due to Unasyn not available - Concern for worsening infection - Will consider further imaging - DVT US on the right negative for DVT - US over cellulitis site negative for fluid collection - Blood cultures negative at 48 hours - May consider ID consultation if no improvement. - Wound care consultation Arthritis - continue home naproxen Anxiety - Continue home citalopram HTN - Continue Metoprolol - Well controlled Disposition: Stable, will continue current plan of care and anticipate discharge in next 1-2 days.
[2018-09-15] MEDS: Metoprolol Tartrate 50 MG TAB PO SCH (07:54)
[2018-09-15] MEDS: Citalopram 20 MG TAB PO SCH (07:54)
[2018-09-15] MEDS: Enoxaparin Sodium 40 MG/0.4 ML SYRINGE SC SCH (07:54)
--- NOTE | 2018-09-15 08:56 | PDOC.EVN ---
Event Note - Event Note Event Note: Transition of Care Note 09/15/18 Admission Date 09/12/18 This is a 63 yo female with a pmh of HTN, arthritis, and anxiety who presents to the ED with a cc of worsening right lower extremity swelling and redness. She reports her swelling and redness initially started about a week ago. She reports some itching and minimal pain. She also reports subjective fever and chills. She states the pain is made worse with movement of her leg. Patient also had Harsha Syndrome in the ED due to Vancomycin being infused too rapidly. We have since scheduled the infusion to go slower and she has not had any further problems. Patient was initially put on Vanc and Unasyn. However, Unasyn is apparently not available in the hospital at this time due to shortage. staff editor including pharmacy failed to notify primary team until 09/14/18. At that time, patient was initiated on Zosyn. Patient has stated that her condition has improved steadily with improvement of her fevers, chills, body aches, and pains in her legs. DVT US was performed of RLE and was found to be negative for thrombus. On 09/15, it appeared to primary team that redness has spread outside of the previously marked area. However, patient has been afrebile with other vitals WNL. It was determined that it is due to gravity and she has made good clinical improvement. Patient has also had negative blood cultures. Patient will likely need to have PICC line placed for fpc antibiotics. If she would become febrile or not continue to improve, Dr. Scanlon would be an appropriate addition to the case. Please contact with any questions or concerns.
--- NOTE | 2018-09-15 11:56 | PRG ---
DATE OF SERVICE: 09/15/2018 This is an addendum to the note of Dr. Сергей Pantoja. Ms. Toscano states that she is feeling better. She has now been afebrile for greater than 24 hours. Her leg is still quite red and slightly warm to touch, but she states overall it is improved. Unfortunately, missed some dosages of Unasyn due to unavailability and this will be reinstituted and/or switched to Zosyn along with the vancomycin. White count remains normal. The patient is afebrile and clinically improving. Job ID: [id number]
[2018-09-15] MEDS: Vancomycin HCl 1.75 GM in Sodium Chloride 0.9% 500 ML IVPB SCH (12:42)
[2018-09-15] MEDS: Naproxen 500 MG TAB PO PRN (19:38)
[2018-09-16 00:08] LABS: Vancomycin, Trough 17.1 ug/mL
[2018-09-16] MEDS: Vancomycin HCl 1.75 GM in Sodium Chloride 0.9% 500 ML IVPB SCH (00:21)
[2018-09-16] MEDS: Piperacillin/Tazobactam 3.375 GM in Sodium Chloride 0.9% 100 ML IVPB SCH ×2 (00:21→05:00)
[2018-09-16 07:44] VITALS: BP 164/79; TEMP 97.9
[2018-09-16] MEDS: Metoprolol Tartrate 50 MG TAB PO SCH (08:43)
[2018-09-16] MEDS: Enoxaparin Sodium 40 MG/0.4 ML SYRINGE SC SCH (08:43)
[2018-09-16] MEDS: Citalopram 20 MG TAB PO SCH (08:43)
--- NOTE | 2018-09-16 10:20 | PRG ---
DATE OF SERVICE: 09/16/2018 SUBJECTIVE: Ms. Toscano continues to feel improved. Her cellulitis is improving; however, she is forming some blisters over the original site of the infection. There is no crepitus. In reviewing her vital signs, she last ran an elevated temperature on at 8:15 a.m. in the morning of 100.4. Since that time, she has been afebrile. Her white count remains normal. She is clinically improving. We will transition her to p.o. clindamycin. We will have wound care to look at her area of cellulitis to see if there is any debridement warranted given the blistering effect. This was all discussed in detail with Ms. Toscano. Job ID: [id number]
--- NOTE | 2018-09-16 10:50 | PDOC.FM ---
- Subjective Subjective: Seen at bedside this morning. She feels that the swelling is getting better and denies new problems or concerns. No acute events over night. - Objective MAR Reviewed: Yes Vital Signs & Weight: Vital Signs (12 hours) Temp Pulse Resp BP Pulse Ox 09/16/18 08:00 94 L 09/16/18 07:43 97.9 F 75 18 164/79 H 94 L Weight Admit Weight 115 kg Weight 115 kg I&O: 09/15/18 09/16/18 09/17/18 06:59 06:59 06:59 Intake Total 1420 1900 360 Balance 1420 1900 360 Result Diagrams: 09/13/18 05:52 09/13/18 05:52 Phys Exam - Physical Examination Constitutional: NAD HEENT: moist MMs Neck: no nodes Respiratory: clear to auscultation bilateral Cardiovascular: RRR, no significant murmur Gastrointestinal: soft, non-tender, no distention Mild R LE edema Neurological: moves all 4 limbs Psychiatric: normal affect, A&O x 3 Deviation from normal: Large area of erythema and induration over anterior R LE extending proximal -: to knee. Area of vesiular lesions over anterior LE. Dx/Plan (1) Cellulitis of right anterior lower leg Code(s): L03.115 - CELLULITIS OF RIGHT LOWER LIMB Status: Acute (2) Anxiety Code(s): F41.9 - ANXIETY DISORDER, UNSPECIFIED Status: Chronic (3) Hypertension Code(s): I10 - ESSENTIAL (PRIMARY) HYPERTENSION Status: Chronic (4) Pre-diabetes Code(s): R73.03 - PREDIABETES Status: Chronic - Plan Plan: Cellulitis - Continues to be afebrile - Will dc IV abx and move to clinda today - Blood cultures negative at 48 hours - Wound care consultation for vesicular lesions - may dc in am pending tolerance of po abx Arthritis - continue home naproxen Anxiety - Continue home citalopram HTN - Continue Metoprolol - Well controlled Disposition: Stable, will continue current plan of care and anticipate discharge in next 1-2 days.
[2018-09-16] MEDS ORDERED: Clindamycin 150 MG CAP PO SCH (12:00)
--- NOTE | 2018-09-17 08:47 | DIS ---
DATE OF ADMISSION: 09/12/2018 DATE OF DISCHARGE: 09/16/2018 DISCHARGE ATTENDING: Nathan Cabezas MD RESIDENT: Donald Hussein DO CONSULTS: None. PROCEDURES: 1. Chest x-ray on 09/12/2018 with finding of borderline heart size with atherosclerotic changes to the aorta. Lung mayen are clear. 2. Tib-fib x-ray on 09/12/2018 showing no acute bony changes. 3. Vascular study on right lower extremity on 09/13/2018 with finding of no evidence of deep venous thrombosis. There is evidence of thickening and edema in the skin. ADMITTING DIAGNOSIS: Cellulitis. SECONDARY DIAGNOSES: 1. Arthritis. 2. Anxiety. 3. Hypertension. DISCHARGE MEDICATIONS: 1. Celexa 20 mg one tablet p.o. daily. 2. Aspirin 81 mg p.o. at bedtime. 3. Naproxen 500 mg one tablet p.o. p.r.n. 4. Metoprolol tartrate 50 mg 0.5 tablet p.o. daily. 5. Clindamycin 300 mg 1 p.o. t.i.d. DISCONTINUED MEDICATIONS: Flagyl and bactrim. HOSPITAL COURSE: This is a 63-year-old female with a history of hypertension, arthritis, and anxiety, who presented to the emergency room, complaining of progressively worsening right lower extremity swelling and redness. In the emergency room, she was diagnosed with cellulitis. She was started on vancomycin and Unasyn; however, Unasyn was unavailable, so the patient was switched to zosyn. During the course of hospitalization, initially the area of induration seemed extend beyond the demarcation; however, this did begin to improve with antibiotics. The patient had negative blood cultures and was moved to p.o. antibiotics. On the day of discharge, the patient was seen by Wound Care, who debrided and dressed an area of concern due to vesicular lesions most likely related to decreasing edema. The patient was advised to take her antibiotics as written t.i.d. and to see in clinic next week. DISCHARGE INSTRUCTIONS: LOCATION: Home. DIET: Heart healthy. ACTIVITY: Ad hannah. FOLLOWUP: Follow up with PCP, [facility], in 1 week. Job ID: [id number] [facility]
--- NOTE | 2018-09-17 15:11 | EKG ---
Test Reason : Blood Pressure : / mmHG Vent. Rate : 077 BPM Atrial Rate : 077 BPM P-R Int : 150 ms QRS Dur : 094 ms QT Int : 422 ms P-R-T Axes : 028 026 034 degrees QTc Int : 477 ms Normal sinus rhythm Nonspecific ST and T wave abnormality Abnormal ECG Confirmed by JENA NUÑEZ D.O. ([id number]), editorial manager CARLOS LUCAS ([id number]) on 09/17/2018 3:11:13 PM Referred By: Confirmed By:JENA NUEÑZ D.O.
== END 2018-09-16 14:57 | disposition home or self-care (01) | DRG 603 ==
LOC: ERS 19:06 → T4-A 20:55
PROVIDERS: ADMIT Family Medicine; ATTEND Family Medicine
DX: L03.115 Cellulitis of right lower limb (principal); I10 Essential (primary) hypertension; M19.90 Unspecified osteoarthritis, unspecified site; F41.9 Anxiety disorder, unspecified
CPT/HCPCS: 36415; 71045; 80048; 80053; 80202; 82550; 85025; 87040; 87804; 93005; 94760; 96365; 96375; J0295; J1200; J1650; J2543; J3370; J7050

== ENCOUNTER 2018-11-13 14:36 | Emergency (ER) | payer OTHER, SELFPAY ==
--- NOTE | 2018-11-13 16:49 | ULT ---
RIGHT LOWER EXTREMITY VENOUS DOPPLER 11/13/18 HISTORY: Edema and pain. COMPARISON: None. TECHNIQUE: Real time lama scale, color doppler and spectral analysis of the right lower extremity venous system was performed. Common femoral, femoral, proximal portion of the greater saphenous and deep femoral ve ins as well as the popliteal and posterior tibial veins were interrogated. Normal flow, augmentation and compression. IMPRESSION: No deep venous thrombosis. POS: SOL[facility]
== END 2018-11-13 16:42 | disposition home or self-care (01) ==
LOC: ERS 14:36
DX: L03.115 Cellulitis of right lower limb (principal); J11.1 Influenza due to unidentified influenza virus with other respiratory manifestations; R73.03 Prediabetes; I10 Essential (primary) hypertension; F41.9 Anxiety disorder, unspecified; Z79.899 Other long term (current) drug therapy; Z79.51 Long term (current) use of inhaled steroids; Z79.82 Long term (current) use of aspirin

== ENCOUNTER 2019-02-06 10:01 | Inpatient (IN) | payer OTHER, SELFPAY ==
[2019-02-06] MEDS ORDERED: Vancomycin HCl 1.5 GM in Sodium Chloride 0.9% 250 ML 300 ML IVPB SCH (11:00)
--- NOTE | 2019-02-06 11:09 | PDOC.FPRHP ---
- History of Present Illness Chief Complaint: right leg rash History of Present Illness: 63 yo F with PMH HTN, anxiety here for right thigh rash and concern for cellulitis. Thinks it started 3-4 days ago, didn't notice it until felt pain when sitting. Unsure of how quickly the rash has spread. Endorses subjective fevers and chills. No other symptoms. Was hospitalized in 2017 for cellulitis. Negative cultures, was sent home on clindamycin. Seen in ED Oct 2017 for cellulitis, wasn't admitted but sent home on abx she cannot recall. Prior episode of cellulitis was on lower right extremity, where as this is upper. Denies numbness, tingling, extreme pain. Up to date on tetaus shot. Denies problems breathing. ED Course: Vancomycin - Allergies/Adverse Reactions Allergies Allergy/AdvReac Type Severity Reaction Status Date / Time morphine AdvReac Mild BRADYCARDIA Verified 08/10/18 00:37 - Home Medications Medication Instructions Recorded Confirmed Type Aspirin [Children's Aspirin] 81 mg PO HS 08/10/18 02/06/19 History Citalopram [CeleXA] 1 tab PO DAILY 08/10/18 02/06/19 History Metoprolol Tartrate 0.5 tab PO DAILY 08/10/18 02/06/19 History Naproxen [Naprosyn] 1 tab PO PRN PRN 08/10/18 02/06/19 History Multivitamin [Multivitamins] 1 cap PO DAILY 02/06/19 02/06/19 History - History PMHx: Cellulitis, HTN, anxiety PSHx: hysterectomy with BTL, appendectomy FHx: lung cancer (father), stroke (mother) Social: denies t/e/d - Review of Systems General: reports: fever/chills. denies: weight/appetite/sleep changes, night sweats Eyes: denies: eye pain, vision changes ENT: denies: nasal congestion, rhinorrhea Respiratory: denies: cough, congestion, shortness of breath Cardiovascular: reports: edema. denies: chest pain, palpitation Gastrointestinal: denies: nausea, vomiting, diarrhea, GI bleeding Genitourinary: denies: dysuria Skin: reports: rashes, lesions Musculoskeletal: reports: pain, tenderness, swelling Neurological: denies: numbness, syncope, seizure - Vital signs 151/57, Pulse: 86, Resp: 19, Temp: 98.7groin (Not applicable), Pain: 0, O2 sat: 97 on Room Air, Time: 02/06/2019 12:48. - Physical Exam Constitutional: NAD, awake, alert and oriented -Constitutional: obese body habitus HEENT: normocephalic and atraumatic, PERRLA, EOMI, no scleral icterus Neck: supple, FROM, trachea midline Heart: RRR, normal S1/S2 Lungs: CTAB, no respiratory distress, good air movement Abdomen: soft, non-tender Musculoskeletal: ROM grossly normal -Musculoskeletal: Right lower extremity: erythema from popliteal angle up to right inguinal crease. Raised central area of erythema with skin changes. No fluctuance or drainable fluid collection. Edema 2+ up to mid knees, tenderness, swelling. Width of erythema 18cm. Pulses present, tender to palpation, able to move right leg Hyperpigementation of at anterior and posterior calf. No tenderness. 1-2+ edema Neurological: no focal deficit, CN II-XII intact Psychiatric: normal mood and affect, good judgment and insight, intact recent and remote memory FMR H&P: Results - Labs Result Diagrams: 02/06/19 10:55 02/06/19 10:55 FMR H&P: A/P - Problem List (1) Cellulitis of right leg Current Visit: Yes Status: Acute Code(s): L03.115 - CELLULITIS OF RIGHT LOWER LIMB (2) Chronic stasis dermatitis Current Visit: Yes Status: Acute Code(s): I87.2 - VENOUS INSUFFICIENCY ( CHRONIC) (PERIPHERAL) (3) Anxiety Current Visit: No Status: Chronic Code(s): F41.9 - ANXIETY DISORDER, UNSPECIFIED (4) Hypertension Current Visit: No Status: Chronic Code(s): I10 - ESSENTIAL (PRIMARY) HYPERTENSION - Plan 63 yo F with chronic stasis dermatitis of right leg admitted for cellulitis and erysipelas Cellulitis, Erysipelas -no drainable fluid collection -no SIRS crtieria met, no WBC, lactic acid normal -s/p Vanc in ED, will continue to cover until blood cultures result -Clinically monitor spread, if unimproved or worsens, will consult general surgery or consider imaging to r/o deep abscess -with unilateral involvement and high risk wells score, will get venous doppler to r/o DVT Stasis dermatitis or R leg -Once cellulitis resolves, continue home mgmt with compression stockings, leg elevation Chronic venous insufficiency -see above HTN -continue home metoprolol Anxiety -continue home meds Code: Full Diet: HH DVT ppx: Lovenox PCP: [facility] Discussed with Dr. Vinicius DYE H&P: Upper Level - Plan Date/Time: 02/06/19 7600 I, [], have evaluated this patient and agree with findings/plan as outlined by bakery pastry internship resident. Pertinent changes/additions are listed here. Addendum - Attending - Attending Attestation Date/Time: 02/06/19 [id number] I personally evaluated the patient and discussed the management with Dr. Perrin I agree with the History, Examination, Assessment and Plan documented above with any addition or exceptions noted below. 63 yo HTN obese female with longstanding chronic venous hypertension LE and history recent stasis dermatitis using compression garments prn. Patient endorsing recent fever chills noted erythema extending to posterior medial thigh with central area well demarcated. Patient started on Vancomycin and to undergo Venous US r/o DVT no palpable cord .
[2019-02-06 11:12] LABS: Hemoglobin 12.5 g/dL (12.0-16.0); Mean Corpuscular Hemoglobin 29.9 pg (27.0-31.0); Mean Corpuscular Volume 90.5 fL (78.0-98.0); Mean Platelet Volume 8.1 fL (7.4-10.4); Platelet Count 137 thou/uL (130-400); RBC Distribution Width 13.2 % (11.5-14.5); Red Blood Cell (RBC) Count 4.18 mill/uL (4.20-5.40); White Blood Cell (WBC) Count 7.2 thou/uL (4.8-10.8)
[2019-02-06 11:25] LABS: Bilirubin Small (Negative); Blood, Urine Large (Negative); Clarity CLOUDY (Clear); Glucose, Urine (Dipstick) 100 mg/dL (Negative); Leukocyte Negative (Negative); Nitrite Negative (Negative); Protein, Urine (Dipstick) 100 mg/dL (Neg-Trace); Specific Gravity, Urine 1.029 (1.002-1.036)
[2019-02-06 11:26] LABS: Bacteria/HPF None Seen HPF (None Seen); RBC/HPF 21-50 HPF (0-3); Squamous Epithelial 0-3 HPF (0-3)
[2019-02-06 11:28] LABS: ALT (SGPT) 17 U/L (8-55); AST (SGOT) 18 U/L (5-34); Albumin 3.3 g/dL (3.4-4.8); Alkaline Phosphatase 38 U/L (40-150); Anion Gap 14 mmol/L (10-20); BUN (Urea Nitrogen) 16 mg/dL (9.8-20.1); Bilirubin, Total 1.1 mg/dL (0.2-1.2); Calc. Creatinine Clearance 0 mL/min (70-130); Calcium 9.3 mg/dL (7.8-10.44); Carbon Dioxide 22 mmol/L (23-31); Chloride 106 mmol/L (98-107); Estimated GFR-MDRD 55; Globulin 3.3 g/dL (2.4-3.5); Glucose 136 mg/dL (80-115); Potassium 3.5 mmol/L (3.5-5.1); Protein, Total 6.6 g/dL (6.0-8.3); Sodium 138 mmol/L (136-145)
[2019-02-06 11:32] LABS: Pathc Cast-AUWi Flag 2.72 (0-2.49)
[2019-02-06 11:43] LABS: Hyaline Casts/LPF 0-3 HYALINE CAST LPF (0-3 Hyaline); Other Casts/LPF None Seen LPF (0-3 Hyaline)
[2019-02-06 11:44] LABS: Crystals/HPF 1+ AMORPH URATES HPF (Negative); Renal Epithelial 0-3 HPF (0-3); Transitional Epithelial 0-3 HPF (0-3)
[2019-02-06 11:48] LABS: Band 4 % (5-11); Large Platelets SLIGHT; Lymphocytes 29 % (21-51); MDiff Complete? YES; Monocytes 6 % (0-10); Neutrophil 46 % (42-75); Platelet Morphology Comment Appears Adequate; RBC Morphology Normal; Reactive Lymphocytes 15 % (0-10)
--- NOTE | 2019-02-06 13:39 | ULT ---
ULTRASOUND DOPPLER DUPLEX VENOUS RIGHT LOWER EXTREMITY: DATE: 02/06/2019 HISTORY: 63-year-old female with right lower extremity pain and edema due to cellulitis TECHNIQUE: Grayscale, color-flow, and spectral analysis, of major veins of right lower extremity. FINDINGS: There is demonstration of blood flow with normal compressibility, of the right common femoral, profun da femoral, greater saphenous, femoral, popliteal, and posterior tibial, veins. IMPRESSION: Negative. No deep venous thrombosis of right lower extremity.
[2019-02-06 13:58] VITALS: BMI 41.3
[2019-02-06] MEDS: Vancomycin HCl 1.75 GM in Sodium Chloride 0.9% 500 ML IVPB SCH (21:13)
[2019-02-06] MEDS ORDERED: Vancomycin HCl 1.75 GM in Sodium Chloride 0.9% 500 ML IVPB SCH (22:00)
[2019-02-07 06:06] LABS: #Neutrophils 3.9 thou/uL (1.40-6.50); %Basophils 0.2 % (0.0-1.0); %Eosinophils 0.2 % (0.0-10.0); %Lymphocytes 29.3 % (21.0-51.0); %Monocytes 14.5 % (0.0-10.0); %Neutrophils 55.9 % (42.0-75.0); Hemoglobin 11.9 g/dL (12.0-16.0); Mean Corpuscular Hemoglobin 30.2 pg (27.0-31.0); Mean Corpuscular Volume 91.3 fL (78.0-98.0); Mean Platelet Volume 7.9 fL (7.4-10.4); Platelet Count 134 thou/uL (130-400); RBC Distribution Width 13.3 % (11.5-14.5); Red Blood Cell (RBC) Count 3.95 mill/uL (4.20-5.40)
[2019-02-07 06:24] LABS: Anion Gap 12 mmol/L (10-20); BUN (Urea Nitrogen) 14 mg/dL (9.8-20.1); Calc. Creatinine Clearance 124 mL/min (70-130); Carbon Dioxide 23 mmol/L (23-31); Chloride 106 mmol/L (98-107); Estimated GFR-MDRD 68; Glucose 133 mg/dL (80-115); Potassium 3.6 mmol/L (3.5-5.1); Sodium 137 mmol/L (136-145)
[2019-02-07] MEDS: Acetaminophen 325 MG TAB PO PRN ×2 (08:46→16:45)
[2019-02-07] MEDS: Enoxaparin Sodium 40 MG/0.4 ML SYRINGE SC SCH (08:47)
--- NOTE | 2019-02-07 09:00 | PDOC.FM ---
- Subjective Subjective: Pt reports feeling stable from admission, reports continued pain in R leg, reports some fluid drained from a bubble last night. No other complaitns or concerns at this time. - Objective Vital Signs & Weight: Vital Signs (12 hours) Temp Pulse Resp BP Pulse Ox 02/07/19 08:00 101.2 F H 85 18 132/68 95 02/07/19 04:42 99.8 F H 90 18 149/67 H 93 L 02/06/19 23:58 99.6 F 86 18 123/70 97 Weight Weight 116.29 kg I&O: 02/06/19 02/07/19 02/08/19 06:59 06:59 06:59 Intake Total 1080 Balance 1080 Result Diagrams: 02/07/19 05:42 02/07/19 05:42 Phys Exam - Physical Examination Constitutional: NAD HEENT: moist MMs, sclera anicteric Neck: supple, full ROM Respiratory: no wheezing, clear to auscultation bilateral Cardiovascular: RRR, no significant murmur Gastrointestinal: soft, non-tender Musculoskeletal: no edema, pulses present Neurological: normal sensation, moves all 4 limbs Psychiatric: normal affect Skin: normal turgor Deviation from normal: erythema on RLE (marked with pen) mild retreat from border ~1cm Dx/Plan (1) Cellulitis of right leg Code(s): L03.115 - CELLULITIS OF RIGHT LOWER LIMB Status: Acute (2) Chronic stasis dermatitis Code(s): I87.2 - VENOUS INSUFFICIENCY (CHRONIC) (PERIPHERAL) Status: Acute (3) Cellulitis and abscess of right leg Code(s): L03.115 - CELLULITIS OF RIGHT LOWER LIMB; L02.415 - CUTANEOUS ABSCESS OF RIGHT LOWER LIMB Status: Acute (4) Anxiety Code(s): F41.9 - ANXIETY DISORDER, UNSPECIFIED Status: Chronic (5) Hypertension Code(s): I10 - ESSENTIAL (PRIMARY) HYPERTENSION Status: Chronic - Plan Plan: Cellulitis, Erysipelas A- improved mildly from admission, though pt still symptomatic P- continue vancomycin -f/u BCx -monitor s/s of systemic infection Stasis dermatitis or R leg -Once cellulitis resolves, continue home mgmt with compression stockings, leg elevation Chronic venous insufficiency -see above HTN -continue home metoprolol Anxiety -continue home meds Code: Full PCP: [facility]
[2019-02-07] MEDS ORDERED: Clopidogrel Bisulfate 75 MG TAB ONE (10:24)
[2019-02-07] MEDS: Vancomycin HCl 1.75 GM in Sodium Chloride 0.9% 500 ML IVPB SCH ×2 (10:40→22:43)
[2019-02-07] MEDS: Ibuprofen 600 MG TAB PO PRN (17:48)
[2019-02-07 21:58] LABS: Vancomycin, Trough 14.3 ug/mL
[2019-02-08 04:01] LABS: #Eosinphils 0.1 thou/uL (0.0-0.7); #Lymphocytes 1.5 thou/uL (1.20-3.40); #Monocytes 0.7 thou/uL (0.11-0.59); #Neutrophils 4.2 thou/uL (1.40-6.50); %Basophils 0.1 % (0.0-1.0); %Lymphocytes 22.9 % (21.0-51.0); %Monocytes 10.9 % (0.0-10.0); %Neutrophils 65.1 % (42.0-75.0); Hemoglobin 11.5 g/dL (12.0-16.0); Mean Corpuscular HGB CONC 32.7 g/dL (32.0-36.0); Mean Corpuscular Hemoglobin 29.4 pg (27.0-31.0); Mean Corpuscular Volume 89.9 fL (78.0-98.0); Mean Platelet Volume 7.9 fL (7.4-10.4); Platelet Count 145 thou/uL (130-400); RBC Distribution Width 13.3 % (11.5-14.5); Red Blood Cell (RBC) Count 3.93 mill/uL (4.20-5.40); White Blood Cell (WBC) Count 6.5 thou/uL (4.8-10.8)
[2019-02-08 04:21] LABS: Anion Gap 12 mmol/L (10-20); BUN (Urea Nitrogen) 13 mg/dL (9.8-20.1); Calc. Creatinine Clearance 130 mL/min (70-130); Calcium 8.7 mg/dL (7.8-10.44); Carbon Dioxide 21 mmol/L (23-31); Chloride 108 mmol/L (98-107); Estimated GFR-MDRD 72; Glucose 150 mg/dL (80-115); Potassium 3.4 mmol/L (3.5-5.1); Sodium 138 mmol/L (136-145)
[2019-02-08] MEDS ORDERED: Polyethylene Glycol 3350 17 GM Packet PO PRN (07:18)
[2019-02-08] MEDS: Acetaminophen 325 MG TAB PO PRN ×2 (08:07→18:47)
[2019-02-08] MEDS: Enoxaparin Sodium 40 MG/0.4 ML SYRINGE SC SCH (08:08)
[2019-02-08] MEDS: Ibuprofen 600 MG TAB PO PRN ×2 (08:08→18:47)
--- NOTE | 2019-02-08 08:43 | PDOC.FM ---
- Subjective Subjective: Pt reports feeling better since ibuprofen was added to regimen. Reports decent sleep. She feels her leg is not any worse or better than before. No fever/ chills over night. No new complaints. - Objective Vital Signs & Weight: Vital Signs (12 hours) Temp Pulse Resp BP Pulse Ox 02/08/19 04:00 98.6 F 71 18 143/72 H 97 02/08/19 00:00 98.2 F 71 18 134/68 96 Weight Admit Weight 116.29 kg Weight 116.29 kg I&O: 02/07/19 02/08/19 02/09/19 06:59 06:59 06:59 Intake Total 1080 2340 Balance 1080 2340 Result Diagrams: 02/08/19 03:42 02/08/19 03:42 Phys Exam - Physical Examination Constitutional: NAD HEENT: moist MMs, sclera anicteric Neck: no JVD, supple Respiratory: no wheezing, no rales Cardiovascular: RRR, no significant murmur Gastrointestinal: soft, non-tender Musculoskeletal: pulses present Neurological: normal sensation, moves all 4 limbs Psychiatric: normal affect, A&O x 3 Skin: cap refill <2 seconds Deviation from normal: Erythema and mild TTP slightly within marked borders Dx/Plan (1) Cellulitis of right leg Code(s): L03.115 - CELLULITIS OF RIGHT LOWER LIMB Status: Acute (2) Chronic stasis dermatitis Code(s): I87.2 - VENOUS INSUFFICIENCY (CHRONIC) (PERIPHERAL) Status: Acute (3) Cellulitis and abscess of right leg Code(s): L03.115 - CELLULITIS OF RIGHT LOWER LIMB; L02.415 - CUTANEOUS ABSCESS OF RIGHT LOWER LIMB Status: Acute (4) Anxiety Code(s): F41.9 - ANXIETY DISORDER, UNSPECIFIED Status: Chronic (5) Hypertension Code(s): I10 - ESSENTIAL (PRIMARY) HYPERTENSION Status: Chronic - Plan Plan: Cellulitis, Erysipelas A- still only mildly improved from admission, though pt still symptomatic. BCx showing CoNS likely contaminate in 1/2, no growth in other culture. P- continue vancomycin -will discuss adding second ABX on rounds -monitor s/s of systemic infection Stasis dermatitis or R leg -Once cellulitis resolves, continue home mgmt with compression stockings, leg elevation Chronic venous insufficiency -see above HTN -continue home metoprolol Anxiety -continue home meds Code: Full PCP: [facility]
[2019-02-08] MEDS ORDERED: Naproxen 500 MG TAB PO PRN ×2 (08:44→09:20)
[2019-02-08] MEDS ORDERED: Non-Formulary Item 1 EACH (Multivitamin [Multivitamins] 1 CAP) PO SCH (09:00)
[2019-02-08] MEDS ORDERED: Metoprolol Tartrate 50 MG TAB PO SCH (09:00)
[2019-02-08] MEDS ORDERED: Citalopram 20 MG TAB PO SCH (09:00)
[2019-02-08] MEDS: Vancomycin HCl 1.75 GM in Sodium Chloride 0.9% 500 ML IVPB SCH ×2 (10:01→21:07)
[2019-02-08] MEDS: Citalopram 20 MG TAB PO SCH (10:07)
[2019-02-08] MEDS: Multivit, Therapeutic 1 TAB PO SCH (10:08)
--- NOTE | 2019-02-08 12:23 | PRG ---
DATE OF SERVICE: 02/08/2019 Ms. Toscano states that she feels better. She still has an area of marked erythema and cellulitis on her inner right upper thigh. She is afebrile. Her white count is normal as 6500. We had hoped to see more improvement by today, so we will add cefazolin to cover possible Strep and/or KIMBERLY in addition to vancomycin for MRSA. If she improves markedly over the next 24 hours, we will reduce her to cefazolin only and then later a p.o. medication for discharge. Job ID: [id number]
[2019-02-08] MEDS ORDERED: CEFAZOLIN 1 GM in Sodium Chloride 0.9% 100 ML IVPB SCH (14:00)
[2019-02-08] MEDS: ceFAZolin 1 GM/D5W 1 GM in Premix Bag 1 BAG IVPB SCH ×2 (15:02→21:03)
[2019-02-08 16:37] LABS: Bilirubin Negative (Negative); Blood, Urine Large (Negative); Clarity CLOUDY (Clear); Glucose, Urine (Dipstick) Negative (Negative); Leukocyte Negative (Negative); Nitrite Negative (Negative); Protein, Urine (Dipstick) 30 mg/dL (Neg-Trace)
[2019-02-08 16:40] LABS: Bacteria/HPF None Seen HPF (None Seen); Hyaline Casts/LPF 7-10 HYALINE CAST LPF (0-3 Hyaline); Pathc Cast-AUWi Flag 1.22 (0-2.49)
[2019-02-08 17:03] LABS: Yeast-All Forms None Seen HPF (None Seen)
[2019-02-08] MEDS ORDERED: Metoprolol Tartrate 25 MG TAB PO SCH (20:00)
[2019-02-08] MEDS: Aspirin Chewable 81 MG TAB PO SCH (20:02)
[2019-02-09] MEDS ORDERED: Clopidogrel Bisulfate 75 MG TAB ONE (05:21)
[2019-02-09] MEDS: ceFAZolin 1 GM/D5W 1 GM in Premix Bag 1 BAG IVPB SCH ×3 (05:37→20:08)
[2019-02-09 06:10] LABS: #Eosinphils 0.1 thou/uL (0.0-0.7); #Lymphocytes 1.7 thou/uL (1.20-3.40); #Monocytes 0.4 thou/uL (0.11-0.59); #Neutrophils 4.1 thou/uL (1.40-6.50); %Basophils 0.4 % (0.0-1.0); %Eosinophils 1.5 % (0.0-10.0); %Lymphocytes 27.3 % (21.0-51.0); %Monocytes 6.3 % (0.0-10.0); %Neutrophils 64.5 % (42.0-75.0); Hemoglobin 11.4 g/dL (12.0-16.0); Mean Corpuscular HGB CONC 33.6 g/dL (32.0-36.0); Mean Corpuscular Hemoglobin 29.9 pg (27.0-31.0); Mean Platelet Volume 7.7 fL (7.4-10.4); Platelet Count 199 thou/uL (130-400); RBC Distribution Width 13.3 % (11.5-14.5); Red Blood Cell (RBC) Count 3.81 mill/uL (4.20-5.40); White Blood Cell (WBC) Count 6.3 thou/uL (4.8-10.8)
[2019-02-09 06:25] LABS: Anion Gap 10 mmol/L (10-20); BUN (Urea Nitrogen) 12 mg/dL (9.8-20.1); Calc. Creatinine Clearance 151 mL/min (70-130); Calcium 9.1 mg/dL (7.8-10.44); Carbon Dioxide 27 mmol/L (23-31); Chloride 107 mmol/L (98-107); Estimated GFR-MDRD 86; Glucose 109 mg/dL (80-115); Potassium 3.5 mmol/L (3.5-5.1); Sodium 140 mmol/L (136-145)
[2019-02-09] MEDS: Multivit, Therapeutic 1 TAB PO SCH (07:57)
[2019-02-09] MEDS: Citalopram 20 MG TAB PO SCH (07:57)
[2019-02-09] MEDS: Metoprolol Tartrate 25 MG TAB PO SCH (07:57)
[2019-02-09] MEDS: Enoxaparin Sodium 40 MG/0.4 ML SYRINGE SC SCH (07:58)
--- NOTE | 2019-02-09 08:50 | PDOC.FM ---
- Subjective Subjective: Pt reports pain is improved but redness is not. reports feeling anxious about prognosis. No other new complaints. No fever/chills - Objective Vital Signs & Weight: Vital Signs (12 hours) Temp Pulse Resp BP Pulse Ox 02/09/19 07:18 99.2 F 72 20 176/97 H 96 02/09/19 04:00 98.3 F 76 18 158/87 H 97 02/09/19 00:35 158/90 H 02/09/19 00:01 98.3 F 72 18 175/85 H 97 02/08/19 21:08 159/84 H Weight Admit Weight 116.29 kg Weight 116.29 kg I&O: 02/08/19 02/09/19 02/10/19 06:59 06:59 06:59 Intake Total 2340 850 Balance 2340 850 Result Diagrams: 02/09/19 05:31 02/09/19 05:31 Phys Exam - Physical Examination Constitutional: NAD HEENT: moist MMs, sclera anicteric Neck: no nodes, no JVD Respiratory: no wheezing, clear to auscultation bilateral Cardiovascular: RRR, no significant murmur Gastrointestinal: non-tender, no distention Musculoskeletal: no edema Neurological: non-focal, normal sensation Psychiatric: normal affect Skin: normal turgor Deviation from normal: continued erythema and TTP consistent with yesterdays exam Dx/Plan (1) Cellulitis of right leg Code(s): L03.115 - CELLULITIS OF RIGHT LOWER LIMB Status: Acute (2) Chronic stasis dermatitis Code(s): I87.2 - VENOUS INSUFFICIENCY (CHRONIC) (PERIPHERAL) Status: Acute (3) Cellulitis and abscess of right leg Code(s): L03.115 - CELLULITIS OF RIGHT LOWER LIMB; L02.415 - CUTANEOUS ABSCESS OF RIGHT LOWER LIMB Status: Acute (4) Anxiety Code(s): F41.9 - ANXIETY DISORDER, UNSPECIFIED Status: Chronic (5) Hypertension Code(s): I10 - ESSENTIAL (PRIMARY) HYPERTENSION Status: Chronic - Plan Plan: Cellulitis, Erysipelas A- still only mildly improved from admission, though pt still symptomatic. BCx showing CoNS likely contaminate in 1/2, no growth in other culture. Considering limited improvement will consider vasculitis as etiology as well. UA showing blood and protein P- continue vancomycin and cefazolin -monitor s/s of systemic infection -f/u TON, consider steroids on rounds Hematuria -per plan above Stasis dermatitis or R leg -Once cellulitis resolves, continue home mgmt with compression stockings, leg elevation Chronic venous insufficiency -see above HTN -continue home metoprolol Anxiety -continue home meds Code: Full PCP: [facility]
[2019-02-09 10:07] LABS: Vancomycin, Trough 18.9 ug/mL
[2019-02-09] MEDS: Vancomycin HCl 1.75 GM in Sodium Chloride 0.9% 500 ML IVPB SCH ×2 (11:13→20:09)
--- NOTE | 2019-02-09 12:05 | PRG ---
DATE OF SERVICE: 02/09/2019 Ms. Toscano states she is still having some discomfort in her upper right thigh. She seems to develop very small abscess in the site of her previous blister. We will have Wound Care, ID, and then debride this area. In the meantime, we will continue with dual antibiotic therapy until we see some regression of the cellulitis. Job ID: [id number]
[2019-02-09] MEDS: Acetaminophen 325 MG TAB PO PRN (13:41)
[2019-02-09] MEDS: Aspirin Chewable 81 MG TAB PO SCH (20:08)
[2019-02-10] MEDS: ceFAZolin 1 GM/D5W 1 GM in Premix Bag 1 BAG IVPB SCH ×2 (06:05→13:30)
[2019-02-10 07:24] VITALS: BP 153/85
[2019-02-10] MEDS: Enoxaparin Sodium 40 MG/0.4 ML SYRINGE SC SCH (07:44)
[2019-02-10] MEDS: Metoprolol Tartrate 25 MG TAB PO SCH (07:45)
[2019-02-10] MEDS: Multivit, Therapeutic 1 TAB PO SCH (07:45)
[2019-02-10] MEDS: Citalopram 20 MG TAB PO SCH (07:45)
--- NOTE | 2019-02-10 08:48 | PDOC.FM ---
- Subjective Subjective: pt reports improved pain and good ambulation. She reports she has not felt feverish since yesterday around noon. No new complaints, no concerns. states she wants to go home. - Objective Vital Signs & Weight: Vital Signs (12 hours) Temp Pulse Resp BP Pulse Ox 02/10/19 07:12 98.4 F 74 18 153/85 H 94 L 02/10/19 03:05 98 F 75 20 152/80 H 95 02/09/19 23:07 98.1 F 73 20 169/81 H 95 Weight Admit Weight 116.29 kg Weight 116.29 kg I&O: 02/09/19 02/10/19 02/11/19 06:59 06:59 06:59 Intake Total 850 Balance 850 Result Diagrams: 02/09/19 05:31 02/09/19 05:31 Phys Exam - Physical Examination Constitutional: NAD HEENT: moist MMs, sclera anicteric Neck: no JVD, supple Respiratory: no wheezing, clear to auscultation bilateral Cardiovascular: RRR, no significant murmur Gastrointestinal: non-tender, no distention Musculoskeletal: pulses present, edema present Neurological: normal sensation, moves all 4 limbs Psychiatric: normal affect Skin: normal turgor Deviation from normal: erythema improved in severity and in borders, mild ttp Dx/Plan (1) Cellulitis of right leg Code(s): L03.115 - CELLULITIS OF RIGHT LOWER LIMB Status: Acute (2) Chronic stasis dermatitis Code(s): I87.2 - VENOUS INSUFFICIENCY (CHRONIC) (PERIPHERAL) Status: Acute (3) Cellulitis and abscess of right leg Code(s): L03.115 - CELLULITIS OF RIGHT LOWER LIMB; L02.415 - CUTANEOUS ABSCESS OF RIGHT LOWER LIMB Status: Acute (4) Anxiety Code(s): F41.9 - ANXIETY DISORDER, UNSPECIFIED Status: Chronic (5) Hypertension Code(s): I10 - ESSENTIAL (PRIMARY) HYPERTENSION Status: Chronic - Plan Plan: Cellulitis, Erysipelas A- Mixed picture of soft tissue infection and stasis dermatitis. Improved from exam yesterday but a lot, most likely due to pt increased ambulation. BCx showing CoNS likely contaminate in 1/2, no growth in other culture. Considering limited improvement. P- continue cefazolin -DC vanc, switch to clindamycin -monitor s/s of systemic infection -f/u TON Hematuria A incidental finding, pt has no kidney injury P- f/u outpt Stasis dermatitis or R leg -Once cellulitis resolves, continue home mgmt with compression stockings, leg elevation Chronic venous insufficiency -see above -counselled weight loss HTN -continue home metoprolol Anxiety -continue home meds Code: Full PCP: G[facility]
[2019-02-10] MEDS ORDERED: Clindamycin 150 MG CAP PO SCH ×2 (09:45→12:00)
[2019-02-10 12:13] VITALS: TEMP 98.7
--- NOTE | 2019-02-10 12:46 | PRG ---
DATE OF SERVICE: 02/10/2019 Ms. Toscano looks and feels much better this morning. We will transition her to p.o. medications and anticipate discharge later today or tomorrow. She remains afebrile with stable vital signs. Her white count remains normal at 6300. Job ID: [id number]
--- NOTE | 2019-02-11 11:43 | DIS ---
DATE OF ADMISSION: 02/06/2019 DATE OF DISCHARGE: 02/10/2019 RESIDENT: Erik Sunshine MD CONSULTS: None. PROCEDURES: On 02/06/2019, vascular ultrasound. Impression, negative, no DVT on right lower extremity. PRIMARY DIAGNOSES: Cellulitis, erysipelas. SECONDARY DIAGNOSES: Hematuria, stasis dermatitis of right leg, chronic venous insufficiency, hypertension, anxiety. DISCHARGE MEDICATIONS: 1. Citalopram 20 mg p.o. daily. 2. Aspirin 81 mg p.o. daily. 3. Naproxen 500 mg one tab p.o. p.r.n. 4. Metoprolol 50 mg 1/2 tablet p.o. daily. 5. Multivitamin one cap p.o. daily. 6. Tylenol 650 mg p.o. q.6 hours p.r.n. 7. Keflex 500 mg p.o. q.12 hours, 7 days. 8. Clindamycin 300 mg p.o. q.6 hours, 28 caps for 7 days. 9. Motrin 600 mg p.o. q.6 hours p.r.n. 10. Polyethylene glycol 17 g packet p.o. daily p.r.n. DISCONTINUED MEDICATIONS: None. HISTORY OF PRESENT ILLNESS/HOSPITAL COURSE: This is a 63-year-old female with history of anxiety and venous stasis dermatitis, who presented with erythema on the right lower extremity and was admitted for cellulitis. Secondary to the severity of the cellulitis, her erythema was quite impressive on exam and the patient was started on vancomycin with minimal to moderate improvement in the 1st few days of admission on vancomycin. Therefore, Keflex was also started. The patient then showed some improvement and eventually was deemed stable for discharge with close followup. Before discharge, a blister was drained and culture sent for said blister. The patient was placed on the friends of service list for followup of culture sensitivities on said blister. DISPOSITION: Stable. DISCHARGE INSTRUCTIONS: Location: Home. Activity: Tolerated. Diet: No restrictions. Therapy instructions: Wound care given. Followup: Follow up with [facility] in 3 days. Job ID: [id number]
[2019-02-11 14:31] LABS: Cytoplasmic (C-ANCA) <1:20 titer (Neg:<1:20); Perinuclear (P-ANCA) <1:20 titer (Neg:<1:20)
== END 2019-02-10 15:26 | disposition home or self-care (01) | DRG 603 ==
LOC: ERS 10:01 → OBSVTOIN 11:13 → T4-B 11:13
PROVIDERS: ADMIT Family Medicine; ATTEND Family Medicine
DX: A46 Erysipelas (principal); L03.115 Cellulitis of right lower limb; Z68.41 Body mass index [BMI] 40.0-44.9, adult; I87.2 Venous insufficiency (chronic) (peripheral); I10 Essential (primary) hypertension; F41.9 Anxiety disorder, unspecified; E66.9 Obesity, unspecified; Z88.5 Allergy status to narcotic agent; Z79.82 Long term (current) use of aspirin; Z79.899 Other long term (current) drug therapy; Z90.49 Acquired absence of other specified parts of digestive tract; Z90.710 Acquired absence of both cervix and uterus
CPT/HCPCS: 36415; 51701; 80048; 80053; 80202; 81001; 81003; 81015; 83605; 84145; 85025; 86256; 87040; 87070; 87149; 87205; 96365; 96366; J0690; J1650; J3370; J3490; J7050

== ENCOUNTER 2019-02-23 09:48 | Outpatient (CLI) | payer SELFPAY ==
[2019-02-23] MEDS ORDERED: Lidocaine 2% PF 100 mg/5 ml Syringe ONE (15:00)
[2019-02-23] MEDS ORDERED: Sodium Chloride 0.9% 15 ML NEB ONE (15:00)
--- NOTE | 2019-02-24 11:33 | HP ---
HISTORY OF PRESENT ILLNESS: Ms. Taty Toscano is a very pleasant 63-year-old, who presents to the [facility]ound [facility] for evaluation of 3 wounds of the right posterior thigh. The patient was recently discharged from [facility] after admission for right lower extremity cellulitis. At the time of a followup visit with her primary care physician on 02/15/2019, the patient was referred to the Wound Center for further evaluation and treatment. The patient states that initially she performed dressing changes of Xeroform gauze for the wounds of her right posterior thigh. She states that when she ran out of Xeroform, she began performing dressing changes of Neosporin followed by a bandage every 3 days. PAST MEDICAL HISTORY: 1. Hypertension. 2. Arthritis. PAST SURGICAL HISTORY: 1. Appendectomy. 2. Bilateral tubal ligation. 3. Hysterectomy with oophorectomy. MEDICATIONS: 1. Vitamins. 2. Probiotics. 3. Naproxen. 4. Aspirin 81 mg. 5. Citalopram. 6. Metoprolol. 7. Tylenol. 8. Ibuprofen. ALLERGIES: MORPHINE, WOOL. SOCIAL HISTORY: Social history is negative for tobacco or EtOH use. FAMILY HISTORY: Family history is significant for diabetes mellitus. The patient's grandmother was diagnosed with diabetes mellitus. Family history is negative for coronary artery disease. PHYSICAL EXAMINATION: VITAL SIGNS: Temperature 98.5, pulse 65, respirations 17, blood pressure 174/78. GENERAL: A 63-year-old female sitting on table in examination room, in no acute distress. HEENT: Normocephalic, atraumatic. NECK: No nuchal rigidity. CHEST: Clear to auscultation. CV: Regular rate and rhythm. ABDOMEN: Soft. EXTREMITIES: Three wounds of the right posterior thigh are present which measure approximately 1.8 x 1.2 cm, 2.3 x 1.7 cm, and 0.7 x 0.8 cm. No purulent drainage is associated with any of the wounds. No cellulitis of the right lower extremity is appreciated. No maceration of the skin of the periwound of any of the wounds is noted. Edema of the right lower extremity is present on exam today. NEURO: Grossly nonfocal. ASSESSMENT AND PLAN: 1. Multiple wounds of right posterior thigh as described above. Dressing changes of Xeroform gauze will be resumed. These dressing changes are to be performed every 3 days and as needed after cleansing and irrigation. The patient will be performing her own dressing changes. The patient is to continue Keflex and clindamycin as prescribed at the time of discharge. I will see Ms. Toscano again in 1 week. The patient understands and is in agreement with the preceding treatment plan. 2. Hypertension. 3. Arthritis. Job ID: [id number]
== END 2019-02-23 09:49 | disposition home or self-care (01) ==
LOC: WCC 09:48
PROVIDERS: ATTEND Family Medicine
DX: S71.101D Unspecified open wound, right thigh, subsequent encounter (principal); I10 Essential (primary) hypertension; M19.90 Unspecified osteoarthritis, unspecified site
CPT/HCPCS: 97602; 99203; A4218; G0463; J2001

== ENCOUNTER 2019-03-02 11:19 | Outpatient (CLI) | payer SELFPAY ==
--- NOTE | 2019-03-02 10:45 | PRG ---
DATE OF SERVICE: 03/02/2019 HISTORY: Ms. Taty Toscano is a very pleasant 63-year-old, who presents to the Wound Center for evaluation of 3 wounds of the right posterior thigh. The patient was recently discharged from [facility] after admission for right lower extremity cellulitis. At the time of the followup visit with her primary care physician on 02/15/2019, the patient was referred to the Wound Center for further evaluation and treatment. The patient has been performing dressing changes of Xeroform gauze for the wounds of her right posterior thigh as prescribed since her last visit. She reports that the induration of her right posterior thigh is decreasing. PHYSICAL EXAMINATION: VITAL SIGNS: Temperature 98.1, pulse 69, respirations 18, blood pressure 168/83. EXTREMITIES: Three wounds of the right posterior thigh are present. The two largest wounds measured approximately 1.5 x 1.6 cm and 2.4 x 1.2 cm. The dimensions of these wounds at the time of the patient's last visit were 1.8 x 1.2 cm and 2.3 x 1.7 cm respectively. No purulent drainage is associated with any of the wounds. No cellulitis of the right lower extremity is appreciated. No maceration of the skin of the periwound of any of the wounds is noted. No significant edema of the right lower extremity is appreciated on today's exam. ASSESSMENT AND PLAN: 1. Multiple wounds of right posterior thigh as described above. Dressing changes of Xeroform gauze will be continued every 3 days and as needed after cleansing and irrigation. The patient will continue to perform her own dressing changes. I will see Ms. Toscano again in 1 week. 2. Hypertension. 3. Arthritis. Job ID: [id number]
[~2019-03-02 11:19] MED LIST: Sodium Chloride 0.9% 15 ML NEB ONE
== END 2019-03-02 11:20 | disposition home or self-care (01) ==
LOC: WCC 11:19
PROVIDERS: ATTEND Family Medicine
DX: S71.101D Unspecified open wound, right thigh, subsequent encounter (principal); I10 Essential (primary) hypertension; M19.90 Unspecified osteoarthritis, unspecified site
CPT/HCPCS: A4218

== ENCOUNTER 2019-03-09 10:42 | Outpatient (CLI) | payer SELFPAY ==
--- NOTE | 2019-03-09 10:05 | PRG ---
DATE OF SERVICE: 03/09/2019 HISTORY: Ms. Taty Toscano is a very pleasant 63-year-old, who presents to the Wound Center for evaluation of wound of the right posterior thigh. The patient was recently discharged from [facility] after admission for right lower extremity cellulitis. At the time of her followup visit with her primary care physician on 02/15/2019, the patient was referred to the Wound Center for further evaluation and treatment. The patient has been performing dressing changes of Xeroform gauze for the wounds of her right posterior thigh as prescribed since her last visit. She reports an improvement in the appearance of her wounds. PHYSICAL EXAMINATION: VITAL SIGNS: Temperature 98.1, pulse 70, respirations 16, blood pressure 180/88. EXTREMITIES: Two wounds of the right posterior thigh are present, which measure approximately 1.2 x 0.6 cm and 1.0 x 2.0 cm. No purulent drainage is associated with either wound. No cellulitis of the right lower extremity is appreciated. No maceration of the skin of the periwound of either wound is noted. No significant edema of the right lower extremity is present on exam today. ASSESSMENT AND PLAN: 1. Wounds of right posterior thigh as described above. Dressing changes of Xeroform, gauze, stockinette, and an Jonathan bandage will be continued every 3 days and as needed after cleansing and irrigation. The patient will continue to perform her own dressing changes. I will see Ms. Toscano again in 1 week. 2. Hypertension. 3. Arthritis. Job ID: [id number]
[2019-03-09] MEDS ORDERED: Sodium Chloride 0.9% 15 ML NEB ONE (15:00)
== END 2019-03-09 10:43 | disposition home or self-care (01) ==
LOC: WCC 10:42
PROVIDERS: ATTEND Family Medicine
DX: S71.101D Unspecified open wound, right thigh, subsequent encounter (principal); I10 Essential (primary) hypertension; M19.90 Unspecified osteoarthritis, unspecified site
CPT/HCPCS: 97602; A4218